=== PATIENT | female | born 1985 | race Caucasian/White ===

== ENCOUNTER 2017-03-27 18:07 | Emergency (ER) | payer MEDICAID, OTHER ==
[~2017-03-27] VITALS: Ht 157.5 cm; Wt 97.6 kg
[~2017-03-27 18:07] MED LIST: SERT-132 PO; SPRI28TA PO
[2017-03-27 18:15] VITALS: BP 123/76; PULSE 81; RESP 16; TEMP 98.3; O2SAT 99
[2017-03-27] MEDS ORDERED: SODIUM CHLOR 0.9% 1000 ML INJ 1,000 ML IV SCH (19:42)
[2017-03-27 19:45] VITALS: BP 95/65; PULSE 75; RESP 16; TEMP 98.3; O2SAT 100
[2017-03-27] MEDS ORDERED: MORPHINE SULFATE 4 MG/ML INJ IV PUSH ONE ×2 (19:45→20:30)
[2017-03-27] MEDS ORDERED: ONDANSETRON HCL 4 MG/2 ML VIAL IVP ONE (19:45)
[2017-03-27] MEDS ORDERED: SODIUM CHLORIDE 0.9% FLUSH 10 ML FLUSH IV FLUSH PRN (19:45)
--- NOTE | 2017-03-27 19:50 | PD ---
HPI Chief Complaint: Abdominal Pain Time Seen by Provider: 19:34 Travel History International Travel<30 days: No Contact w/Intl Traveler<30days: No Traveled to known affect area: No History of Present Illness HPI The patient is a 31-year-old female that complains of right upper quadrant pain along with nausea and vomiting since 3 AM this morning. She also had some diarrhea last night but none today. She was able to hold down liquids today. She has already had a cholecystectomy about a year ago. She denies any other abdominal surgeries. She takes control pills correctly and states she cannot be . She is nauseated now. She denies any fever. She does have frequency of urination. She states she passed 2 urinary stones when she was . [facility] Past Medical History Diminished Hearing: No ?: Not LMP: 9 months ago, on control Social History Alcohol Use: No (ONE DRINK THREE YEARS AGO) Tobacco Use: No Substance Use: No Allergies-Medications (Allergen,Severity, Reaction): Coded Allergies: Penicillin (Verified Allergy, Intermediate, n/v, 03/27/17) Reported Meds & Prescriptions Reported Meds & Active Scripts Active Sprintec 28 (Norgestimate-Ethinyl Estradiol) 0.25-35 mg-Mcg Tab 1 Tab PO DAILY Sertraline (Sertraline HCl) 50 Mg Tab 50 Mg PO DAILY Review of Systems Except as stated in HPI: all other systems reviewed are Neg Physical Exam Narrative GENERAL: The patient is alert, oriented 3 in moderate apparent distress with her abdominal discomfort. Her vital signs are normal. SKIN: Focused skin assessment warm/dry. HEAD: Atraumatic. Normocephalic. EYES: Pupils equal and round. No scleral icterus. No injection or drainage. ENT: No nasal bleeding or discharge. Mucous membranes pink and moist. NECK: Trachea midline. No JVD. CARDIOVASCULAR: Regular rate and rhythm. No murmur appreciated. RESPIRATORY: No accessory muscle use. Clear to auscultation. Breath sounds equal bilaterally. GASTROINTESTINAL: Abdomen soft, with tenderness to direct palpation and the right upper quadrant, nondistended. Hepatic and splenic margins not palpable. No guarding or rebound is present. MUSCULOSKELETAL: No obvious deformities. No clubbing. No cyanosis. No edema. NEUROLOGICAL: Awake and alert. No obvious cranial nerve deficits. Motor grossly within normal limits. Normal speech. PSYCHIATRIC: Appropriate mood and affect; insight and judgment normal. Data Data Last Documented VS Vital Signs Date Time Temp Pulse Resp B/P Pulse Ox O2 Delivery O2 Flow Rate FiO2 03/27/17 22:46 98.2 71 16 101/58 98 Room Air Orders Beta Hcg (Quant/Titer) (03/27/17 19:42) Complete Blood Count With Diff (03/27/17 19:42) Comprehensive Metabolic Panel (03/27/17 19:42) Lipase (03/27/17 19:42) Urinalysis - C+S If Indicated (03/27/17 19:42) Ct Abd/Pel W Iv Contrast(Rout) (03/27/17 19:42) Iv Access Insert/Monitor (03/27/17 19:42) Ecg Monitoring (03/27/17 19:42) Oximetry (03/27/17 19:42) Morphine Inj (Morphine Inj) (03/27/17 19:45) Ondansetron Inj (Zofran Inj) (03/27/17 19:45) Sodium Chlor 0.9% 1000 Ml Inj (Ns 1000 M (03/27/17 19:42) Sodium Chloride 0.9% Flush (Ns Flush) (03/27/17 19:45) Ondansetron Inj (Zofran Inj) (03/27/17 20:30) Morphine Inj (Morphine Inj) (03/27/17 20:30) Iohexol 350 Inj (Omnipaque 350 Inj) (03/27/17 20:32) Prochlorperazine Inj (Compazine Inj) (03/27/17 20:45) Mri Abdomen W&W/O Contrast (03/27/17 ) Gadodiamide Pf Inj (Omniscan Pf Inj) (03/27/17 22:34) Labs Laboratory Tests Test 03/27/17 03/27/17 19:40 19:50 White Blood Count 5.6 TH/MM3 Red Blood Count 4.95 MIL/MM3 Hemoglobin 14.4 GM/DL Hematocrit 42.5 % Mean Corpuscular Volume 86.0 FL Mean Corpuscular Hemoglobin 29.0 PG Mean Corpuscular Hemoglobin 33.7 % Concent Red Cell Distribution Width 12.8 % Platelet Count 206 TH/MM3 Mean Platelet Volume 8.2 FL Neutrophils (%) (Auto) 54.3 % Lymphocytes (%) (Auto) 33.1 % Monocytes (%) (Auto) 11.1 % Eosinophils (%) (Auto) 1.2 % Basophils (%) (Auto) 0.3 % Neutrophils # (Auto) 3.0 TH/MM3 Lymphocytes # (Auto) 1.9 TH/MM3 Monocytes # (Auto) 0.6 TH/MM3 Eosinophils # (Auto) 0.1 TH/MM3 Basophils # (Auto) 0.0 TH/MM3 CBC Comment DIFF FINAL Differential Comment Sodium Level 138 MEQ/L Potassium Level 4.2 MEQ/L Chloride Level 106 MEQ/L Carbon Dioxide Level 25.2 MEQ/L Anion Gap 7 MEQ/L Blood Urea Nitrogen 11 MG/DL Creatinine 0.88 MG/DL Estimat Glomerular Filtration 75 ML/MIN Rate Random Glucose 92 MG/DL Calcium Level 9.1 MG/DL Total Bilirubin 0.3 MG/DL Aspartate Amino Transf 18 U/L (AST/SGOT) Alanine Aminotransferase 21 U/L (ALT/SGPT) Alkaline Phosphatase 60 U/L Total Protein 7.5 GM/DL Albumin 3.4 GM/DL Lipase 194 U/L Human Chorionic Gonadotropin, LESS THAN 1 Quant MIU/ML Urine Color YELLOW Urine Turbidity CLOUDY Urine pH 6.0 Urine Specific [place] 1.020 Urine Protein NEG mg/dL Urine Glucose (UA) NEG mg/dL Urine Ketones NEG mg/dL Urine Occult Blood MOD Urine Nitrite NEG Urine Bilirubin NEG Urine Leukocyte Esterase NEG Urine RBC 4-9 /hpf Urine WBC 0-2 /hpf Urine Squamous Epithelial 0-5 /hpf Cells Microscopic Urinalysis Comment CULT NOT INDICATED MDM Medical Decision Making Medical Screen Exam Complete: Yes Emergency Medical Condition: Yes Medical Record Reviewed: Yes Interpretation(s) The CBC is normal. The complete metabolic profile shows a GFR of 75 but is otherwise unremarkable. The beta-hCG is less than 1, the patient is not . The urine shows cloudy turbidity, moderate occult blood with 4-9 red cells and is otherwise normal and culture is not indicated. The CT abdomen/ pelvis shows a 4.7 x 3.8 cm hyperdense or enhancing mass in the central right lobe of the liver near the dome of the liver. No other acute findings are noted in the pelvis or abdomen. The MRI of the abdomen with and without contrast does not show the mass but the radiologist says it cannot be definitively excluded. The radiologist recommended repeat MRI with and without contrast in 3-6 months. The study is otherwise unremarkable. Differential Diagnosis Choledocholithiasis, colitis, liver mass, urinary tract infection, urinary stone Narrative Course Despite 8 of morphine and 10 of Compazine IV the patient still has some pain and nausea. Because the patient is so symptomatic I would like to do the MRI tonight. The tumor and the liver is hyperdense. It is likely the cause of the patient's symptoms. About a year ago, before her cholecystectomy, an MRI was done at [facility] and they did not tell her about any mass. It is now 11:36 PM and the patient does feel better. At this time we cannot find the etiology of her pain. Plan: She will be given Lortab 5 and Phenergan. Med/Other Pt SpecificInfo: Prescription(s) given Scripts Promethazine (Phenergan)25 Mg [id number] Mg PO Q6H PRN (NAUSEA OR VOMITING) #30 TAB Ref 0 Prov:Ganesh Barcenas MD 03/27/17 Hydrocodone-Acetaminophen (Lortab)5-325 Mg Tab1 Tab PO Q6H PRN (PAIN) #30 TAB Ref 0 Prov:Ganesh Barcenas MD 03/27/17 Disposition: 01 DISCHARGE HOME Condition: Stable Ganesh Barcenas MD Mar 27, 2017 19:50
[2017-03-27 19:56] LABS: GLUCOSE,URINE NEG (NEG); KETONE, URINE NEG (NEG); NITRITE,URINE NEG (NEG)
[2017-03-27 20:01] LABS: BLOOD, URINE MOD (NEG)
[2017-03-27 20:02] LABS: URINE COLOR YELLOW (YELLW/STRAW)
[2017-03-27 20:03] LABS: COMMENT (UR) CULT NOT INDICATED; CULTURE IF INDICATED CULT NOT INDICATED; SQUAMOUS EPITHELIAL CELL URINE 0-5 /hpf (0-5); WBC, URINE 0-2 /hpf (0-5)
[2017-03-27 20:04] LABS: BASOPHIL % 0.3 % (0.0-2.0); CHLORIDE 106 MEQ/L (98-107); EOSINOPHIL # 0.1 TH/MM3 (0-0.4); EOSINOPHIL % 1.2 % (0.0-4.0); HEMATOCRIT 42.5 % (35.0-46.0); LYMPH % 33.1 % (9.0-44.0); LYMPHOCYTE # 1.9 TH/MM3 (1.0-4.8); MEAN CORPUSCULAR HGB CONC 33.7 % (32.0-36.0); MONO % 11.1 % (0.0-8.0); NEUT % 54.3 % (16.0-70.0); PLATELET COUNT 206 TH/MM3 (150-450); POTASSIUM 4.2 MEQ/L (3.5-5.1); RED BLOOD COUNT 4.95 MIL/MM3 (4.00-5.30); RED CELL DISTRIBUTION WIDTH 12.8 % (11.6-17.2); SODIUM (NA) 138 MEQ/L (136-145); WHITE BLOOD COUNT 5.6 TH/MM3 (4.0-11.0)
[2017-03-27 20:05] LABS: HEMO FLAGS DIFF FINAL
[2017-03-27 20:07] LABS: ANION GAP 7 MEQ/L (5-15); BICARBONATE 25.2 MEQ/L (21.0-32.0); BLOOD UREA NITROGEN 11 MG/DL (7-18)
[2017-03-27 20:11] LABS: ALT (GPT) 21 U/L (10-53); AST (GOT) 18 U/L (15-37); GLOMERULAR FILTRATION RATE 75 ML/MIN (>89)
[2017-03-27 20:13] LABS: TOTAL BILIRUBIN ADULT 0.3 MG/DL (0.2-1.0)
[2017-03-27 20:14] LABS: ALKALINE PHOSPHATASE 60 U/L (45-117)
[2017-03-27 20:16] LABS: BETA HCG QUANT LESS THAN 1 MIU/ML (0-5)
[2017-03-27] MEDS ORDERED: ONDANSETRON HCL 4 MG/2 ML VIAL IV ONE (20:30)
[2017-03-27] MEDS ORDERED: IOHEXOL 350 MG/ML 10 ML VIAL (for RAD DIAG) IV ONE (20:32)
[2017-03-27 20:45] VITALS: BP 114/60; PULSE 74; RESP 16; O2SAT 98
[2017-03-27] MEDS ORDERED: PROCHLORPERAZINE INJ 10 MG/2 ML VIAL IV PUSH ONE (20:45)
--- NOTE | 2017-03-27 21:14 | RADRPT ---
EXAM DATE/TIME: 03/27/2017 20:28 [facility] COMPARISON: No previous studies available for comparison. INDICATIONS : Right upper quadrant pain. Vomiting. IV CONTRAST: 100 cc Omnipaque 350 (iohexol) IV ORAL CONTRAST: No oral contrast ingested. RADIATION DOSE: 20.27 CTDIvol (mGy) MEDICAL HISTORY : None SURGICAL HISTORY : section. Cholecystectomy. ENCOUNTER: Initial ACUITY: 1 day PAIN SCALE: 8/10 LOCATION: Right upper quadrant TECHNIQUE: Volumetric scanning of the abdomen and pelvis was performed. Using automated exposure control and ad justment of the mA and/or kV according to patient size, radiation dose was kept as low as reasonably achievable to obtain optimal diagnostic quality images. DICOM format image data is available electro nically for review and comparison. FINDINGS: Lung bases are clear. Within the liver it is a hyperdense or enhancing mass in the central right lobe near the dome measuring up to 4.7 x 3.8 cm. No other liver masses are identified. The spleen, adrena ls, kidneys and pancreas unremarkable. Previous cholecystectomy. No free fluid. No bowel obstruction. No adenopathy. No acute bony abnormalities. CONCLUSION: 1. 4.7 x 3.8 cm hyperdense or enhancing mass in the central right lobe of the liver near the dome of the liver. Findings are nonspecific but cannot exclude neoplasm. Recommend further evaluation with MR I of the liver which could be performed on a nonemergent basis. Previous cholecystectomy. No acute fi ndings in the pelvis. Ari Welch MD on March 27, 2017 at 21:08 Board Certified Radiologist. This report was verified electronically.
[2017-03-27] MEDS ORDERED: GADODIAMIDE PF 287 MG/ML 20 ML VIAL (for RAD MRI) IV ONE (22:34)
[2017-03-27 22:46] VITALS: BP 101/58; PULSE 71; RESP 16; TEMP 98.2; O2SAT 98
--- NOTE | 2017-03-27 23:22 | RADRPT ---
EXAM DATE/TIME: 03/27/2017 22:18 [facility] COMPARISON: CT ABDOMEN & PELVIS W CONTRAST, March 27, 2017, 20:28. INDICATIONS : Abdominal pain. Abnormal CT. CONTRAST: 19 cc Omniscan (gadodiamide) IV MEDICAL HISTORY : None. SURGICAL HISTORY : Cholecystectomy. section. ENCOUNTER: Subsequent ACUITY: 1 day PAIN SCORE: 3/10 LOCATION: Right upper quadrant abdomen. TECHNIQUE: Multiplanar, multisequence magnetic resonance imaging of the abdomen was performed without and with i ntravenous contrast. FINDINGS: LIVER: In the left lobe of the liver, the area of enhancement noted on the CT examination from earlier today is best appreciated on the early arterial images with a transverse measurement of 5.3 cm on axial im age #8 and approximately 2.8 cm in AP dimension. There does appear to be a branch of the middle hepat ic vein coursing through this region. On the portal venous phase this is much less conspicuous and is near isointense on the delayed phase imaging. It is mildly hyperintense on diffusion and much less c onvincing for mass on this examination. More likely this represents transient hepatic signal intensit y difference phenomenon due to regional variations in the balance between hepatic arterial and portal venous blood flow. BILIARY: There is no intra- or extra-hepatic biliary ductal dilatation. Gallbladder contains no stones. SPLEEN: Within normal limits. PANCREAS: Within normal limits. ADRENALS: Within normal limits. KIDNEYS: Normal size and signal intensity. There is no hydronephrosis or mass. OTHER: Aorta is nonaneurysmal. There is no lymphadenopathy. CONCLUSION: 1. Probable transient increase in intensity phenomenon left lobe liver rather than true mass however mass cannot definitively excluded. A short interval followup MRI of the abdomen with and without cont rast is advised in 3-6 months. 2. The study is otherwise unremarkable. Tomás Nance MD on March 27, 2017 at 23:14 Board Certified Radiologist. This report was verified electronically.
[2017-03-27] MEDS ORDERED: PROM25TA10 PO (23:46)
[2017-03-27] MEDS ORDERED: HYDR-3533 PO (23:46)
[2017-03-28 00:06] VITALS: BP 112/68; TEMP 97.8
[2017-03-28 00:10] VITALS: O2SAT 99
[2017-05-08] MEDS ORDERED: SERT25TA83 PO (15:04)
[2017-05-08] MEDS ORDERED: SERT-132 PO (15:04)
[2017-06-04] MEDS ORDERED: ETON1IMP I-DERMAL (10:20)
== END 2017-03-28 00:11 | disposition home or self-care (01) ==
LOC: PHED 18:07
DX: R10.31 Right lower quadrant pain (principal); R11.10 Vomiting, unspecified; R35.0 Frequency of micturition
CPT/HCPCS: 74177; 74183; 80053; 81001; 83690; 84702; 85025; 96361; 96374; 96375; 96376; 99285; A9579; J0780; J2270; J7030; Q9967